=== PATIENT | male | born 1985 | race Caucasian/White ===

== ENCOUNTER 2021-12-08 12:21 | Emergency (ER) | payer OTHER ==
[~2021-12-08] VITALS: Ht 170.2 cm; Wt 97.5 kg
--- NOTE | 2021-12-08 12:51 | NUR ---
According to the patient, while he was working, a wall fell on the back of his head, he did not lose consciousness but he felt dizzy.
--- NOTE | 2021-12-08 12:51 | NUR ---
Brought by father to the emergency department after he was instructed by the urgent care to go to the nearest emergency department for CT of the head.
[2021-12-08 13:46] VITALS: BP 145/75
--- NOTE | 2021-12-08 13:46 | NUR ---
Patient discharged to home in stable condition. Written and verbal after care instructions given. Patient verbalizes understanding of instruction.
== END 2021-12-08 13:46 | disposition home or self-care (01) ==
LOC: ER 12:44
DX: S00.83XA Contusion of other part of head, initial encounter (principal); W20.8XXA Other cause of strike by thrown, projected or falling object, initial encounter; Y93.89 Activity, other specified; Y92.89 Other specified places as the place of occurrence of the external cause; Y99.8 Other external cause status
CPT/HCPCS: 70450-TC